=== PATIENT | male | born 1985 | race African-American/Black ===

== ENCOUNTER 2020-04-23 20:15 | Emergency (ER) | payer SELFPAY ==
[2020-04-23 20:38] LABS: Bilirubin Negative (Negative); Blood, Urine Negative (Negative); Clarity Clear (Clear); Glucose, Urine (Dipstick) Normal (Negative); Ketone, Urine Negative (Negative); Leukocyte Negative Leu/uL (Negative); Nitrite Negative (Negative); Protein, Urine (Dipstick) Negative (Neg-Trace); Specific Gravity, Urine 1.027 (1.002-1.036); Urobilinogen 3 mg/dL (Less than 2)
== END 2020-04-23 21:43 | disposition home or self-care (01) ==
LOC: ERS 20:15
DX: Z00.8 Encounter for other general examination (principal); I10 Essential (primary) hypertension; F17.210 Nicotine dependence, cigarettes, uncomplicated
CPT/HCPCS: 81003; 87086; 99283